=== PATIENT | male | born 1955 | race Caucasian/White ===

== ENCOUNTER 2017-10-02 12:05 | Inpatient (IN) | payer BC ==
[2017-10-02] MEDS ORDERED: Acetaminophen 325 MG Tab PO PRN (13:15)
[2017-10-02] MEDS ORDERED: Iopamidol 612 MG/ML 100 ML Bottle IVPUSH ONE (13:34)
[2017-10-02] MEDS: Enoxaparin 40 MG/0.4 ML Syringe SUBCUT SCH (15:18)
[2017-10-02] MEDS: Clindamycin Phosphate 600 MG in Sodium Chloride 0.9% 100 ML IV SCH ×2 (15:20→20:03)
[2017-10-02] MEDS: Vancomycin 2 GM in Sodium Chloride 0.9% 500 ML IV SCH (16:41)
[2017-10-02] MEDS: Sodium Chloride 0.9% 10 ML Syringe FLUSH PRN ×2 (16:42→20:08)
--- NOTE | 2017-10-02 16:57 | PCM.HP ---
H&P History of Present Illness - General Date of Service: 10/02/17 Admit Problem/Dx: Admission Diagnosis/Problem Admission Diagnosis/Problem Cellulitis Source of Information: Patient, Family - History of Present Illness Initial Comments - Free Text/Narative: 10/02/2017 patient comes into the clinic for evaluation of a left foot ulcer, noticed last night after his stated she saw some drainage to his socks. 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 The took a picture of the foot last night and this morning it looks worse, with an odor and drainage. 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 Patient has been afebrile. Denies nausea or vomiting. Onset of Symptoms: Reports: Sudden Location: Reports: Lower Extremity, Left Improves with: Reports: Immobilization Worsens with: Reports: Movement - Related Data Allergies/Adverse Reactions: Allergies Allergy/AdvReac Type Severity Reaction Status Date / Time No Known Allergies Allergy Verified 10/02/17 14:10 Home Medications: Home Meds Aspirin 81 mg PO DAILY 10/02/17 [History] Furosemide 20 mg PO DAILY 10/02/17 [History] Hydrochlorothiazide 12.5 mg PO DAILY 10/02/17 [History] Lisinopril 5 mg PO BEDTIME 10/02/17 [History] Lisinopril 10 mg PO DAILY 10/02/17 [History] Metoprolol Succinate 200 mg PO DAILY 10/02/17 [History] Multivits,Ca,Min/Iron/FA/Lycop [Centrum Men's Tablet] 1 tab PO DAILY 10/02/17 [ History] Naproxen Sodium [Aleve] 2 tab PO BEDTIME PRN 10/02/17 [History] diphenhydrAMINE HCl [Benadryl] 1 cap PO BEDTIME 10/02/17 [History] Past Medical History HEENT History: Reports: Impaired Vision Other HEENT History: Wears glasses Cardiovascular History: Reports: High Cholesterol, Hypertension Endocrine/Metabolic History: Reports: Obesity/BMI 30+ Dermatologic History: Reports: Cellulitis Other Dermatologic History: hx. of pressure ulcer left foot (ball of foot by great toe) - Past Surgical History Other Musculoskeletal Surgeries/Procedures:: Hx. of back surgery Social & Family History - Family History Cardiac: Reports: High Cholesterol (noted in both parents), Hypertension - Tobacco Use Smoking Status *Q: Never Smoker - Recreational Drug Use Recreational Drug Use: No - Living Situation & Occupation Living situation: Reports: Occupation: Employed H&P Review of Systems - Review of Systems: Review Of Systems: See Below General: Reports: No Symptoms HEENT: Reports: No Symptoms Pulmonary: Reports: No Symptoms Cardiovascular: Reports: No Symptoms Gastrointestinal: Reports: No Symptoms Genitourinary: Reports: No Symptoms Musculoskeletal: Reports: No Symptoms Skin: Reports: Wound (left foot ulceration noted with odor) Psychiatric: Reports: No Symptoms Neurological: Reports: Numbness (numbness to LE bilat) Hematologic/Lymphatic: Reports: No Symptoms Immunologic: Reports: No Symptoms Exam - Exam Exam: See Below - Vital Signs Vital Signs: Last Vital Signs Temp 97.2 F 10/02/17 16:04 Pulse 64 10/02/17 16:04 Resp 18 10/02/17 13:15 BP 156/96 H 10/02/17 16:04 Pulse Ox 99 10/02/17 16:04 Weight: 351 lb 10.197 oz - Exam Quality Assessment: DVT Prophylaxis, Skin Breakdown General: Alert, Oriented, Cooperative HEENT: Conjunctiva Clear, EACs Clear, EOMI, Hearing Intact, Mucosa Moist & [place] , Posterior Pharynx Clear, Pupils Equal Neck: Supple, Trachea Midline Lungs: Clear to Auscultation, Normal Respiratory Effort Cardiovascular: Regular Rate, Regular Rhythm GI/Abdominal Exam: Normal Bowel Sounds, Soft, Non-Tender, No Organomegaly, No Distention, No Abnormal Bruit Back Exam: Normal Inspection, Full Range of Motion Extremities: Other (left foot ulceration noted with ecchymotic area with odor, ) Peripheral Pulses: 1+: Dorsalis Pedis (L), Dorsalis Pedis (R) Skin: Decubitis (left foot) Neurological: Cranial Nerves Intact, Reflexes Equal Bilateral Neuro Extensive - Mental Status: Alert, Oriented x3, Normal Mood/Affect, Normal Cognition, Memory Intact Neuro Extensive - Motor, Sensory, Reflexes: CN II-XII Intact, Normal Gait, Normal Reflexes Psychiatric: Alert, Normal Affect, Normal Mood - Problem List (1) Ulcer of foot SNOMED Code(s): 47708097 ICD Code: L97.509 - NON-PRESSURE CHRONIC ULCER OTH PRT UNSP FOOT W UNSP SEVERITY Status: Acute Current Visit: Yes Qualifiers: Non-pressure ulcer stage: unspecified non-pressure ulcer stage (2) Cellulitis and abscess of foot SNOMED Code(s): 874113304, 449307443 ICD Code: L03.119 - CELLULITIS OF UNSPECIFIED PART OF LIMB; L02.619 - CUTANEOUS ABSCESS OF UNSPECIFIED FOOT Status: Acute Current Visit: Yes (3) Hypertension SNOMED Code(s): 06838666 ICD Code: I10 - ESSENTIAL (PRIMARY) HYPERTENSION Status: Acute Current Visit: Yes Qualifiers: Hypertension type: essential hypertension Qualified Code(s): I10 - Essential (primary) hypertension Problem List Initiated/Reviewed/Updated: Yes Orders Last 24hrs: Active Orders 24 hr Category Date Time Status Patient Status [ADT] Routine ADT 10/02/17 13:15 Active May Shower [RC] ASDIRECTED Care 10/02/17 13:15 Active Oxygen Therapy [RC] PRN Care 10/02/17 13:15 Active Up to Chair [RC] ASDIRECTED Care 10/02/17 13:15 Active VTE/DVT Education [RC] PER UNIT ROUTINE Care 10/02/17 13:15 Active Vital Signs [RC] Q4H Care 10/02/17 13:15 Active Consult to Case Management [CONS] Routine Cons 10/02/17 13:15 Active Consult to Pharmacy [CONS] Routine Cons 10/02/17 13:29 Active Regular Diet [DIET] Diet 10/02/17 Dinner Active Bone Scan Limited [NM] Routine Exams 10/05/17 08:00 Ordered Foot 2V Lt [CR] Routine Exams 10/02/17 13:21 Taken Foot w Cont Lt [CT] Routine Exams 10/02/17 13:21 Taken C-REACTIVE PROTEIN [CHEM] DAILY Lab 10/03/17 05:11 Ordered C-REACTIVE PROTEIN [CHEM] DAILY Lab 10/04/17 05:11 Ordered C-REACTIVE PROTEIN [CHEM] DAILY Lab 10/05/17 05:11 Ordered C-REACTIVE PROTEIN [CHEM] DAILY Lab 10/06/17 05:11 Ordered CBC WITH AUTO DIFF [HEME] DAILY Lab 10/03/17 05:11 Ordered CBC WITH AUTO DIFF [HEME] DAILY Lab 10/04/17 05:11 Ordered CBC WITH AUTO DIFF [HEME] DAILY Lab 10/05/17 05:11 Ordered CBC WITH AUTO DIFF [HEME] DAILY Lab 10/06/17 05:11 Ordered COMPREHENSIVE METABOLIC PN,CMP [CHEM] DAILY Lab 10/03/17 05:11 Ordered COMPREHENSIVE METABOLIC PN,CMP [CHEM] DAILY Lab 10/04/17 05:11 Ordered COMPREHENSIVE METABOLIC PN,CMP [CHEM] DAILY Lab 10/05/17 05:11 Ordered COMPREHENSIVE METABOLIC PN,CMP [CHEM] DAILY Lab 10/06/17 05:11 Ordered CULTURE BLOOD [BC] Stat Lab 10/02/17 13:35 Received CULTURE BLOOD [BC] Stat Lab 10/02/17 13:45 Received Acetaminophen [Tylenol] Med 10/02/17 13:15 Active 650 mg PO Q4H PRN Clindamycin Phosphate [Cleocin] 600 mg Med 10/02/17 14:00 Active Sodium Chloride 0.9% [Normal Saline] 100 ml IV Q6H Enoxaparin [Lovenox] Med 10/02/17 14:00 Active 40 mg SUBCUT Q24H Sodium Chloride 0.9% [Saline Flush] Med 10/02/17 13:15 Active 10 ml FLUSH ASDIRECTED PRN Vancomycin 2 gm Med 10/02/17 16:00 Active Sodium Chloride 0.9% [Normal Saline] 500 ml IV Q12H Blood Culture x2 Reflex Set [OM.PC] Stat Oth 10/02/17 13:15 Ordered Peripheral IV Insertion Adult [OM.PC] Routine Oth 10/02/17 13:15 Ordered Resuscitation Status Routine Resus Stat 10/02/17 13:15 Ordered Medication Orders Acetaminophen (Tylenol) 650 mg PO Q4H PRN PRN Reason: Pain (Mild 1-3)/fever Enoxaparin Sodium (Lovenox) 40 mg SUBCUT Q24H [facility] Last Admin: 10/02/17 15:18 Dose: 40 mg Clindamycin Phosphate 600 mg/ (Sodium Chloride) 104 mls @ 200 mls/hr IV Q6H [facility] Last Admin: 10/02/17 15:20 Dose: 200 mls/hr Vancomycin HCl 2 gm/ Sodium (Chloride) 500 mls @ 165 mls/hr IV Q12H [facility] Last Admin: 10/02/17 16:41 Dose: 165 mls/hr Sodium Chloride (Saline Flush) 10 ml FLUSH ASDIRECTED PRN PRN Reason: Keep Vein Open Last Admin: 10/02/17 16:42 Dose: 10 ml Assessment/Plan Comment:: Patient is admitted to inpatient services due to the severity of the ulceration with visible tunneling noted on the plantar aspect of the foot, culture obtained. Area of redness outlined, will order xray and CT scan of the foot. Surgical consult ordered for possible debridement after the patient has been on IV antibiotics. Started Vanco and Clindamycin IV. Pharmacy consulted. The foot ulceration is too advanced to manage as outpatient at this point. Patient refuses transfer to [place] at this time. Dr Lang consulted. Niyah Loving,[employer]
[2017-10-02] MEDS: Lisinopril 5 MG Tab PO SCH (20:03)
[2017-10-03] MEDS: Clindamycin Phosphate 600 MG in Sodium Chloride 0.9% 100 ML IV SCH ×4 (02:35→22:50)
[2017-10-03] MEDS: Sodium Chloride 0.9% 10 ML Syringe FLUSH PRN ×6 (02:35→23:30)
[2017-10-03] MEDS: Vancomycin 2 GM in Sodium Chloride 0.9% 500 ML IV SCH ×2 (03:06→19:26)
[2017-10-03] MEDS: Lisinopril 10 MG Tab PO SCH (07:27)
[2017-10-03] MEDS: Multivitamin Tab PO SCH (07:27)
[2017-10-03] MEDS: Aspirin 81 MG Tab.Chew PO SCH (07:27)
[2017-10-03] MEDS: Hydrochlorothiazide 25 MG Tab PO SCH (07:27)
[2017-10-03] MEDS: Furosemide 20 MG Tab PO SCH (07:28)
[2017-10-03] MEDS ORDERED: Metoprolol Succinate 50 MG Tab.ER PO SCH (08:00)
[2017-10-03 09:40] LABS: CHLORIDE,CL 104 mmol/L (98-107); SODIUM,NA 140 mmol/L (136-145)
[2017-10-03] MEDS: Enoxaparin 40 MG/0.4 ML Syringe SUBCUT SCH (16:34)
--- NOTE | 2017-10-03 19:14 | PCM.PN ---
- General Info Date of Service: 10/03/17 Admission Dx/Problem (Free Text): Admission Diagnosis/Problem Admission Diagnosis/Problem Cellulitis Functional Status: Reports: Pain Controlled - Review of Systems General: Reports: No Symptoms HEENT: Reports: No Symptoms Pulmonary: Reports: No Symptoms Cardiovascular: Reports: No Symptoms Gastrointestinal: Reports: No Symptoms Genitourinary: Reports: No Symptoms Musculoskeletal: Reports: No Symptoms Skin: Reports: Other (ulcer left foot) Neurological: Reports: No Symptoms Psychiatric: Reports: No Symptoms - Patient Data Vitals - Most Recent: Last Vital Signs Temp 98.7 F 10/03/17 16:00 Pulse 69 10/03/17 16:00 Resp 18 10/03/17 16:00 BP 119/76 10/03/17 16:00 Pulse Ox 95 10/03/17 16:00 Weight - Most Recent: 351 lb 10.197 oz I&O - Last 24 Hours: Intake & Output 10/03/17 10/03/17 10/03/17 06:59 14:59 22:59 Intake Total 1160 360 Balance 1160 360 Lab Results Last 24 Hours: Laboratory Results - last 24 hr 10/03/17 10/03/17 Range/Units 09:10 09:10 WBC 7.8 (4.0-10.2) K/uL RBC 5.16 (4.33-5.41) M/uL Hgb 15.9 (13.1-16.8) g/dL Hct 46.5 (39.0-49.0) % MCV 90.1 D (84.0-98.0) fL MCH 30.8 (28.2-33.3) pg MCHC 34.2 (31.7-36.0) g/dL RDW 13.6 (11.2-14.1) % Plt Count 184 (150-350) K/uL Neut % (Auto) 77.1 (45.0-80.0) % Lymph % (Auto) 15.8 (10.0-50.0) % [place] % (Auto) 5.3 (2.0-14.0) % Eos % (Auto) 1.5 (0.0-5.0) % Baso % (Auto) 0.3 (0.0-2.0) % Neut # (Auto) 6.00 (1.40-7.00) K/uL Lymph # (Auto) 1.23 (0.50-3.50) K/uL [place] # (Auto) 0.41 (0.00-1.00) K/uL Eos # (Auto) 0.12 (0.00-0.50) K/uL Baso # (Auto) 0.02 (0.00-0.20) K/uL Sodium 140 (136-145) mmol/L Potassium 3.8 (3.5-5.1) mmol/L Chloride 104 (98-107) mmol/L Carbon Dioxide 26.5 (21.0-32.0) mmol/L BUN 13 (7-18) mg/dL Creatinine 0.96 (0.51-1.17) mg/dL Est Cr Clr Drug Dosing 106.98 mL/min Estimated GFR (MDRD) > 60 mL/min Glucose 107 H (74-106) mg/dL Calcium 8.7 (8.5-10.1) mg/dL Total Bilirubin 0.8 (0.2-1.0) mg/dL AST 15 (15-37) U/L ALT 27 (12-78) U/L Alkaline Phosphatase 80 (46-116) IU/L C-Reactive Protein 1.3 H (<=0.9) mg/dL Total Protein 7.1 (6.4-8.2) g/dL Albumin 3.2 L (3.4-5.0) g/dL Luis M Results Last 24 Hours: Microbiology 10/02/17 13:45 Aerobic Blood Culture - Preliminary Blood - Venous - Lab Draw NO GROWTH AFTER 1 DAY Anaerobic Blood Culture - Preliminary NO GROWTH AFTER 1 DAY 10/02/17 13:35 Aerobic Blood Culture - Preliminary Blood - Venous NO GROWTH AFTER 1 DAY Anaerobic Blood Culture - Preliminary NO GROWTH AFTER 1 DAY Med Orders - Current: Current Medications Acetaminophen (Tylenol) 650 mg PO Q4H PRN PRN Reason: Pain (Mild 1-3)/fever Aspirin (Aspirin) 81 mg PO DAILY [facility] Last Admin: 10/03/17 07:27 Dose: 81 mg Diphenhydramine HCl (Benadryl) 25 mg PO BEDTIME [facility] Enoxaparin Sodium (Lovenox) 40 mg SUBCUT Q24H [facility] Last Admin: 10/03/17 16:34 Dose: 40 mg Furosemide (Lasix) 20 mg PO DAILY [facility] Last Admin: 10/03/17 07:28 Dose: 20 mg Hydrochlorothiazide (Hydrochlorothiazide) 12.5 mg PO DAILY [facility] Last Admin: 10/03/17 07:27 Dose: 12.5 mg Clindamycin Phosphate 600 mg/ (Sodium Chloride) 104 mls @ 200 mls/hr IV Q6H [facility] Last Admin: 10/03/17 16:33 Dose: 200 mls/hr Vancomycin HCl 2 gm/ Sodium (Chloride) 500 mls @ 165 mls/hr IV Q12H [facility] Lisinopril (Prinivil) 5 mg PO BEDTIME [facility] Last Admin: 10/02/17 20:03 Dose: 5 mg Lisinopril (Prinivil) 10 mg PO DAILY [facility] Last Admin: 10/03/17 07:27 Dose: 10 mg Metoprolol Succinate (Toprol Xl) 200 mg PO BEDTIME [facility] Multivitamins/Minerals/Vitamin C (Tab-A-Lars) 1 tab PO DAILY [facility] Last Admin: 10/03/17 07:27 Dose: 1 tab Sodium Chloride (Saline Flush) 10 ml FLUSH ASDIRECTED PRN PRN Reason: Keep Vein Open Last Admin: 10/03/17 07:23 Dose: 10 ml Discontinued Medications Clindamycin Phosphate 600 mg/ (Sodium Chloride) 104 mls @ 200 mls/hr IV Q6H [facility] Last Admin: 10/03/17 07:23 Dose: 200 mls/hr Vancomycin HCl 1 gm/ Sodium (Chloride) 250 mls @ 165 mls/hr IV Q12H [facility] Last Admin: 10/02/17 17:27 Dose: Not Given Vancomycin HCl 2 gm/ Sodium (Chloride) 500 mls @ 165 mls/hr IV Q12H [facility] Last Admin: 10/03/17 03:06 Dose: 165 mls/hr Iopamidol (Isovue-300 (61%)) 100 ml IVPUSH ONETIME ONE Stop: 10/02/17 13:35 Metoprolol Succinate (Toprol Xl) 200 mg PO DAILY [facility] Last Admin: 10/03/17 07:28 Dose: Not Given - Exam Quality Assessment: Central Line/PICC General: Alert, Cooperative, No Acute Distress HEENT: Mucous Membr. Moist/[place] Neck: Trachea Midline, No JVD Lungs: Clear to Auscultation, Normal Respiratory Effort Cardiovascular: Regular Rate, Regular Rhythm GI/Abdominal Exam: Soft, Non-Tender, No Distention (Male) Exam: Deferred Back Exam: Normal Inspection Extremities: Pedal Edema Skin: Warm, Dry, Intact Wound/Incisions: Drainage, Erythema Improving Neurological: No New Focal Deficit Psy/Mental Status: Alert, Normal Affect, Normal Mood - Problem List & Annotations (1) Neuropathy SNOMED Code(s): 030972929 Code(s): G62.9 - POLYNEUROPATHY, UNSPECIFIED Status: Acute Current Visit : Yes (2) Cellulitis and abscess of foot SNOMED Code(s): 000815260, 032212200 Code(s): L03.119 - CELLULITIS OF UNSPECIFIED PART OF LIMB; L02.619 - CUTANEOUS ABSCESS OF UNSPECIFIED FOOT Status: Acute Priority: High Current Visit: Yes (3) Hypertension SNOMED Code(s): 39288739 Code(s): I10 - ESSENTIAL (PRIMARY) HYPERTENSION Status: Acute Current Visit: Yes Qualifiers: Hypertension type: essential hypertension Qualified Code(s): I10 - Essential (primary) hypertension (4) Ulcer of foot SNOMED Code(s): 96420814 Code(s): L97.509 - NON-PRESSURE CHRONIC ULCER OTH PRT UNSP FOOT W UNSP SEVERITY Status: Acute Current Visit: Yes Qualifiers: Non-pressure ulcer stage: unspecified non-pressure ulcer stage - Problem List Review Problem List Initiated/Reviewed/Updated: Yes - My Orders Last 24 Hours: My Active Orders 10/03/17 09:10 PICC Line [Central Line Insert Checklist] [RC] ASDIRECTED Consult to PICC Team [CONS] Routine OR PCXR-No Charge-PICC/Central [CR] Routine PICC Line Placement NC [CR] Routine Central Venous Line Insertion [OM.PC] Routine 10/03/17 20:00 diphenhydrAMINE [Benadryl] 25 mg PO BEDTIME - Plan Plan:: Patient is admitted to inpatient services due to the severity of the ulceration with visible tunneling noted on the plantar aspect of the foot, culture obtained. Area of redness outlined, will order xray and CT scan of the foot. Surgical consult ordered for possible debridement after the patient has been on IV antibiotics. Started Vanco and Clindamycin IV. Pharmacy consulted. The foot ulceration is too advanced to manage as outpatient at this point. Patient refuses transfer to [place] at this time. Dr Lang consulted. Niyah Loving,KURT 10/03/17 Rickey Porter MD Redness improving. Eshcar persists. Cultures pending. PICC inserted today. Awaiting surgical consultation.
[2017-10-03] MEDS: Lisinopril 5 MG Tab PO SCH (19:33)
[2017-10-03] MEDS: diphenhydrAMINE 25 MG Cap PO SCH (19:33)
[2017-10-03] MEDS: Metoprolol Succinate 50 MG Tab.ER PO SCH (19:37)
[2017-10-04] MEDS: Clindamycin Phosphate 600 MG in Sodium Chloride 0.9% 100 ML IV SCH ×4 (02:59→19:34)
[2017-10-04] MEDS: Sodium Chloride 0.9% 10 ML Syringe FLUSH PRN ×8 (03:00→20:23)
[2017-10-04] MEDS: Lisinopril 10 MG Tab PO SCH (07:29)
[2017-10-04] MEDS: Furosemide 20 MG Tab PO SCH (07:29)
[2017-10-04] MEDS: Multivitamin Tab PO SCH (07:29)
[2017-10-04] MEDS: Hydrochlorothiazide 25 MG Tab PO SCH (07:29)
[2017-10-04] MEDS: Aspirin 81 MG Tab.Chew PO SCH (07:29)
[2017-10-04 07:41] LABS: CHLORIDE,CL 105 mmol/L (98-107); SODIUM,NA 140 mmol/L (136-145)
[2017-10-04] MEDS: Vancomycin 2 GM in Sodium Chloride 0.9% 500 ML IV SCH ×2 (08:58→20:11)
[2017-10-04] MEDS: Enoxaparin 40 MG/0.4 ML Syringe SUBCUT SCH (13:38)
--- NOTE | 2017-10-04 17:52 | PCM.PN ---
- General Info Date of Service: 10/04/17 Admission Dx/Problem (Free Text): Admission Diagnosis/Problem Admission Diagnosis/Problem Cellulitis Functional Status: Reports: Pain Controlled - Review of Systems General: Reports: No Symptoms HEENT: Reports: No Symptoms Pulmonary: Reports: No Symptoms Cardiovascular: Reports: No Symptoms Gastrointestinal: Reports: No Symptoms Genitourinary: Reports: No Symptoms Musculoskeletal: Reports: No Symptoms Skin: Reports: Other (ulcer left foot less drainage, less redness of the foot) Neurological: Reports: No Symptoms, Other (peripheral neuropathy) Psychiatric: Reports: No Symptoms - Patient Data Vitals - Most Recent: Last Vital Signs Temp 97.3 F 10/04/17 11:05 Pulse 63 10/04/17 11:05 Resp 17 10/04/17 11:05 BP 121/76 10/04/17 11:05 Pulse Ox 98 10/04/17 11:05 Weight - Most Recent: 351 lb 10.197 oz I&O - Last 24 Hours: Intake & Output 10/04/17 10/04/17 10/04/17 06:59 14:59 22:59 Intake Total 500 2524 Balance 500 2524 Lab Results Last 24 Hours: Laboratory Results - last 24 hr 10/04/17 10/04/17 10/04/17 Range/Units 07:10 07:10 07:10 WBC 7.6 (4.0-10.2) K/uL RBC 4.89 (4.33-5.41) M/uL Hgb 14.9 (13.1-16.8) g/dL Hct 44.0 (39.0-49.0) % MCV 90.0 (84.0-98.0) fL MCH 30.5 (28.2-33.3) pg MCHC 33.9 (31.7-36.0) g/dL RDW 13.4 (11.2-14.1) % Plt Count 176 (150-350) K/uL Neut % (Auto) 67.5 (45.0-80.0) % Lymph % (Auto) 21.2 (10.0-50.0) % [place] % (Auto) 8.4 (2.0-14.0) % Eos % (Auto) 2.5 (0.0-5.0) % Baso % (Auto) 0.4 (0.0-2.0) % Neut # (Auto) 5.15 (1.40-7.00) K/uL Lymph # (Auto) 1.62 (0.50-3.50) K/uL [place] # (Auto) 0.64 (0.00-1.00) K/uL Eos # (Auto) 0.19 (0.00-0.50) K/uL Baso # (Auto) 0.03 (0.00-0.20) K/uL Sodium 140 (136-145) mmol/L Potassium 4.1 (3.5-5.1) mmol/L Chloride 105 (98-107) mmol/L Carbon Dioxide 27.1 (21.0-32.0) mmol/L BUN 12 (7-18) mg/dL Creatinine 0.94 (0.51-1.17) mg/dL Est Cr Clr Drug Dosing 109.26 mL/min Estimated GFR (MDRD) > 60 mL/min Glucose 92 (74-106) mg/dL Calcium 8.5 (8.5-10.1) mg/dL Total Bilirubin 0.6 (0.2-1.0) mg/dL AST 15 (15-37) U/L ALT 26 (12-78) U/L Alkaline Phosphatase 74 (46-116) IU/L C-Reactive Protein 1.3 H (<=0.9) mg/dL Total Protein 6.7 (6.4-8.2) g/dL Albumin 3.0 L (3.4-5.0) g/dL Vancomycin Trough 11.9 (10-20) ug/mL Luis M Results Last 24 Hours: Microbiology 10/02/17 13:45 Aerobic Blood Culture - Preliminary Blood - Venous - Lab Draw NO GROWTH AFTER 2 DAYS Anaerobic Blood Culture - Preliminary NO GROWTH AFTER 2 DAYS 10/02/17 13:35 Aerobic Blood Culture - Preliminary Blood - Venous NO GROWTH AFTER 2 DAYS Anaerobic Blood Culture - Preliminary NO GROWTH AFTER 2 DAYS Med Orders - Current: Current Medications Acetaminophen (Tylenol) 650 mg PO Q4H PRN PRN Reason: Pain (Mild 1-3)/fever Aspirin (Aspirin) 81 mg PO DAILY [facility] Last Admin: 10/04/17 07:29 Dose: 81 mg Diphenhydramine HCl (Benadryl) 25 mg PO BEDTIME [facility] Last Admin: 10/03/17 19:33 Dose: 25 mg Diphtheria/Tetanus/Acell Pertussis (Adacel) 0.5 ml IM .ONCE ONE Stop: 10/04/17 20:01 Enoxaparin Sodium (Lovenox) 40 mg SUBCUT Q24H [facility] Last Admin: 10/04/17 13:38 Dose: 40 mg Furosemide (Lasix) 20 mg PO DAILY [facility] Last Admin: 10/04/17 07:29 Dose: 20 mg Hydrochlorothiazide (Hydrochlorothiazide) 12.5 mg PO DAILY [facility] Last Admin: 10/04/17 07:29 Dose: 12.5 mg Clindamycin Phosphate 600 mg/ (Sodium Chloride) 104 mls @ 200 mls/hr IV Q6H [facility] Last Admin: 10/04/17 13:37 Dose: 200 mls/hr Vancomycin HCl 2 gm/ Sodium (Chloride) 500 mls @ 165 mls/hr IV Q12H [facility] Last Admin: 10/04/17 08:58 Dose: 165 mls/hr Lisinopril (Prinivil) 5 mg PO BEDTIME [facility] Last Admin: 10/03/17 19:33 Dose: 5 mg Lisinopril (Prinivil) 10 mg PO DAILY [facility] Last Admin: 10/04/17 07:29 Dose: 10 mg Metoprolol Succinate (Toprol Xl) 200 mg PO BEDTIME [facility] Last Admin: 10/03/17 19:37 Dose: 200 mg Multivitamins/Minerals/Vitamin C (Tab-A-Lars) 1 tab PO DAILY [facility] Last Admin: 10/04/17 07:29 Dose: 1 tab Sodium Chloride (Saline Flush) 10 ml FLUSH ASDIRECTED PRN PRN Reason: Keep Vein Open Last Admin: 10/04/17 13:38 Dose: 10 ml Discontinued Medications Clindamycin Phosphate 600 mg/ (Sodium Chloride) 104 mls @ 200 mls/hr IV Q6H [facility] Last Admin: 10/03/17 07:23 Dose: 200 mls/hr Vancomycin HCl 1 gm/ Sodium (Chloride) 250 mls @ 165 mls/hr IV Q12H [facility] Last Admin: 10/02/17 17:27 Dose: Not Given Vancomycin HCl 2 gm/ Sodium (Chloride) 500 mls @ 165 mls/hr IV Q12H [facility] Last Admin: 10/03/17 03:06 Dose: 165 mls/hr Iopamidol (Isovue-300 (61%)) 100 ml IVPUSH ONETIME ONE Stop: 10/02/17 13:35 Last Admin: 10/04/17 11:09 Dose: Not Given Metoprolol Succinate (Toprol Xl) 200 mg PO DAILY [facility] Last Admin: 10/03/17 07:28 Dose: Not Given - Exam Quality Assessment: Central Line/PICC General: Alert, Cooperative, No Acute Distress HEENT: Mucous Membr. Moist/[place] Neck: Trachea Midline, No JVD Lungs: Clear to Auscultation, Normal Respiratory Effort Cardiovascular: Regular Rate, Regular Rhythm GI/Abdominal Exam: Soft, Non-Tender, No Distention (Male) Exam: Deferred Back Exam: Normal Inspection Extremities: Pedal Edema (left>right) Skin: Warm, Dry, Intact Wound/Incisions: Drainage, Erythema Improving, Other (eschar center) Neurological: No New Focal Deficit Psy/Mental Status: Alert, Normal Affect, Normal Mood - Problem List & Annotations (1) Neuropathy SNOMED Code(s): 929304963 Code(s): G62.9 - POLYNEUROPATHY, UNSPECIFIED Status: Acute Current Visit : Yes (2) Cellulitis and abscess of foot SNOMED Code(s): 521114821, 100381892 Code(s): L03.119 - CELLULITIS OF UNSPECIFIED PART OF LIMB; L02.619 - CUTANEOUS ABSCESS OF UNSPECIFIED FOOT Status: Acute Priority: High Current Visit: Yes (3) Hypertension SNOMED Code(s): 73099749 Code(s): I10 - ESSENTIAL (PRIMARY) HYPERTENSION Status: Acute Current Visit: Yes Qualifiers: Hypertension type: essential hypertension Qualified Code(s): I10 - Essential (primary) hypertension (4) Ulcer of foot SNOMED Code(s): 28362994 Code(s): L97.509 - NON-PRESSURE CHRONIC ULCER OTH PRT UNSP FOOT W UNSP SEVERITY Status: Acute Current Visit: Yes Qualifiers: Non-pressure ulcer stage: unspecified non-pressure ulcer stage - Problem List Review Problem List Initiated/Reviewed/Updated: Yes - My Orders Last 24 Hours: My Active Orders 10/03/17 20:00 diphenhydrAMINE [Benadryl] 25 mg PO BEDTIME - Plan Plan:: Patient is admitted to inpatient services due to the severity of the ulceration with visible tunneling noted on the plantar aspect of the foot, culture obtained. Area of redness outlined, will order xray and CT scan of the foot. Surgical consult ordered for possible debridement after the patient has been on IV antibiotics. Started Vanco and Clindamycin IV. Pharmacy consulted. The foot ulceration is too advanced to manage as outpatient at this point. Patient refuses transfer to [place] at this time. Dr Lang consulted. Niyah Loving,[facility] [place] 10/03/17 Rickey Porter MD Redness improving. Eshcar persists. Cultures pending. PICC inserted today. Awaiting surgical consultation. 10/04/17 Rickey Porter MD Preliminary C&S wound noted. Continue antibiotics. Surgical consultation tomorrow.
[2017-10-04] MEDS ORDERED: Diphtheria,Pertussis(Acell),Tetanus Vaccine 0.5 ML SDV IM ONE (20:00)
[2017-10-04] MEDS: Metoprolol Succinate 50 MG Tab.ER PO SCH (20:21)
[2017-10-04] MEDS: Lisinopril 5 MG Tab PO SCH (20:21)
[2017-10-04] MEDS: diphenhydrAMINE 25 MG Cap PO SCH (20:22)
[2017-10-05] MEDS: Clindamycin Phosphate 600 MG in Sodium Chloride 0.9% 100 ML IV SCH ×2 (02:11→07:31)
[2017-10-05] MEDS: Sodium Chloride 0.9% 10 ML Syringe FLUSH PRN ×6 (02:11→20:40)
[2017-10-05] MEDS: Lisinopril 10 MG Tab PO SCH (07:31)
[2017-10-05] MEDS: Furosemide 20 MG Tab PO SCH (07:31)
[2017-10-05] MEDS: Aspirin 81 MG Tab.Chew PO SCH (07:31)
[2017-10-05] MEDS: Multivitamin Tab PO SCH (07:31)
[2017-10-05] MEDS: Hydrochlorothiazide 25 MG Tab PO SCH (07:32)
[2017-10-05 07:50] LABS: CHLORIDE,CL 105 mmol/L (98-107); SODIUM,NA 140 mmol/L (136-145)
[2017-10-05] MEDS: Vancomycin 2 GM in Sodium Chloride 0.9% 500 ML IV SCH ×2 (08:33→20:38)
[2017-10-05] MEDS ORDERED: Levofloxacin/Dextrose 5%-Water 500 MG in Premix Bag 1 BAG IV SCH (11:00)
[2017-10-05] MEDS ORDERED: Ciprofloxacin in D5W 400 MG in Premix Bag 1 BAG IV SCH ×2 (12:00)
[2017-10-05] MEDS: cefTAZidime 1 GM Vial IVPUSH SCH ×2 (12:07→20:40)
--- NOTE | 2017-10-05 18:02 | PCM.PN ---
- General Info Date of Service: 10/05/17 Admission Dx/Problem (Free Text): Admission Diagnosis/Problem Admission Diagnosis/Problem Cellulitis Functional Status: Reports: Pain Controlled - Review of Systems General: Reports: No Symptoms HEENT: Reports: No Symptoms Pulmonary: Reports: No Symptoms Cardiovascular: Reports: No Symptoms Gastrointestinal: Reports: No Symptoms Genitourinary: Reports: No Symptoms Musculoskeletal: Reports: No Symptoms Skin: Reports: No Symptoms, Other (ulcer debrided per Dr. Thomas today) Neurological: Reports: No Symptoms Psychiatric: Reports: No Symptoms - Patient Data Vitals - Most Recent: Last Vital Signs Temp 97.3 F 10/05/17 16:00 Pulse 63 10/05/17 16:00 Resp 18 10/05/17 16:00 BP 119/85 10/05/17 16:00 Pulse Ox 97 10/05/17 16:00 Weight - Most Recent: 351 lb 10.197 oz I&O - Last 24 Hours: Intake & Output 10/05/17 10/05/17 10/05/17 06:59 14:59 22:59 Intake Total 400 1300 240 Balance 400 1300 240 Lab Results Last 24 Hours: Laboratory Results - last 24 hr 10/05/17 10/05/17 Range/Units 07:20 07:20 WBC 7.8 (4.0-10.2) K/uL RBC 5.00 (4.33-5.41) M/uL Hgb 15.4 (13.1-16.8) g/dL Hct 44.8 (39.0-49.0) % MCV 89.6 (84.0-98.0) fL MCH 30.8 (28.2-33.3) pg MCHC 34.4 (31.7-36.0) g/dL RDW 13.5 (11.2-14.1) % Plt Count 168 (150-350) K/uL Neut % (Auto) 65.8 (45.0-80.0) % Lymph % (Auto) 23.2 (10.0-50.0) % [place] % (Auto) 7.9 (2.0-14.0) % Eos % (Auto) 2.7 (0.0-5.0) % Baso % (Auto) 0.4 (0.0-2.0) % Neut # (Auto) 5.14 (1.40-7.00) K/uL Lymph # (Auto) 1.81 (0.50-3.50) K/uL [place] # (Auto) 0.62 (0.00-1.00) K/uL Eos # (Auto) 0.21 (0.00-0.50) K/uL Baso # (Auto) 0.03 (0.00-0.20) K/uL Sodium 140 (136-145) mmol/L Potassium 4.1 (3.5-5.1) mmol/L Chloride 105 (98-107) mmol/L Carbon Dioxide 27.3 (21.0-32.0) mmol/L BUN 13 (7-18) mg/dL Creatinine 0.97 (0.51-1.17) mg/dL Est Cr Clr Drug Dosing 105.88 mL/min Estimated GFR (MDRD) > 60 mL/min Glucose 90 (74-106) mg/dL Calcium 8.5 (8.5-10.1) mg/dL Total Bilirubin 0.6 (0.2-1.0) mg/dL AST 33 (15-37) U/L ALT 46 (12-78) U/L Alkaline Phosphatase 73 (46-116) IU/L C-Reactive Protein 1.2 H (<=0.9) mg/dL Total Protein 6.9 (6.4-8.2) g/dL Albumin 3.1 L (3.4-5.0) g/dL Luis M Results Last 24 Hours: Microbiology 10/02/17 13:45 Aerobic Blood Culture - Preliminary Blood - Venous - Lab Draw NO GROWTH AFTER 3 DAYS Anaerobic Blood Culture - Preliminary NO GROWTH AFTER 3 DAYS 10/02/17 13:35 Aerobic Blood Culture - Preliminary Blood - Venous NO GROWTH AFTER 3 DAYS Anaerobic Blood Culture - Preliminary NO GROWTH AFTER 3 DAYS Med Orders - Current: Current Medications Acetaminophen (Tylenol) 650 mg PO Q4H PRN PRN Reason: Pain (Mild 1-3)/fever Aspirin (Aspirin) 81 mg PO DAILY [facility] Last Admin: 10/05/17 07:31 Dose: 81 mg Ceftazidime (Fortaz) 1 gm IVPUSH Q8H [facility] Stop: 10/05/17 20:01 Last Admin: 10/05/17 12:07 Dose: 1 gm Diphenhydramine HCl (Benadryl) 25 mg PO BEDTIME [facility] Last Admin: 10/04/17 20:22 Dose: 25 mg Furosemide (Lasix) 20 mg PO DAILY [facility] Last Admin: 10/05/17 07:31 Dose: 20 mg Hydrochlorothiazide (Hydrochlorothiazide) 12.5 mg PO DAILY [facility] Last Admin: 10/05/17 07:32 Dose: 12.5 mg Vancomycin HCl 2 gm/ Sodium (Chloride) 500 mls @ 165 mls/hr IV Q12H [facility] Stop: 10/05/17 23:02 Last Admin: 10/05/17 08:33 Dose: 165 mls/hr Ceftriaxone Sodium 2 gm/ (Sodium Chloride) 100 mls @ 200 mls/hr IV Q24H [facility] Levofloxacin/Dextrose 500 mg/ (Premix) 100 mls @ 100 mls/hr IV Q24H [facility] Lisinopril (Prinivil) 5 mg PO BEDTIME [facility] Last Admin: 10/04/17 20:21 Dose: 5 mg Lisinopril (Prinivil) 10 mg PO DAILY [facility] Last Admin: 10/05/17 07:31 Dose: 10 mg Metoprolol Succinate (Toprol Xl) 200 mg PO BEDTIME [facility] Last Admin: 10/04/17 20:21 Dose: 200 mg Multivitamins/Minerals/Vitamin C (Tab-A-Lars) 1 tab PO DAILY [facility] Last Admin: 10/05/17 07:31 Dose: 1 tab Sodium Chloride (Saline Flush) 10 ml FLUSH ASDIRECTED PRN PRN Reason: Keep Vein Open Last Admin: 10/05/17 12:07 Dose: 10 ml Discontinued Medications Diphtheria/Tetanus/Acell Pertussis (Adacel) 0.5 ml IM .ONCE ONE Stop: 10/04/17 20:01 Last Admin: 10/04/17 20:12 Dose: 0.5 ml Enoxaparin Sodium (Lovenox) 40 mg SUBCUT Q24H [facility] Last Admin: 10/04/17 13:38 Dose: 40 mg Clindamycin Phosphate 600 mg/ (Sodium Chloride) 104 mls @ 200 mls/hr IV Q6H [facility] Last Admin: 10/03/17 07:23 Dose: 200 mls/hr Vancomycin HCl 1 gm/ Sodium (Chloride) 250 mls @ 165 mls/hr IV Q12H [facility] Last Admin: 10/02/17 17:27 Dose: Not Given Vancomycin HCl 2 gm/ Sodium (Chloride) 500 mls @ 165 mls/hr IV Q12H [facility] Last Admin: 10/03/17 03:06 Dose: 165 mls/hr Clindamycin Phosphate 600 mg/ (Sodium Chloride) 104 mls @ 200 mls/hr IV Q6H [facility] Last Admin: 10/05/17 07:31 Dose: 200 mls/hr Ciprofloxacin/Dextrose 400 mg/ (Premix) 200 mls @ 200 mls/hr IV Q12HR [facility] Levofloxacin/Dextrose 500 mg/ (Premix) 100 mls @ 100 mls/hr IV Q24H [facility] Last Admin: 10/05/17 12:07 Dose: 100 mls/hr Iopamidol (Isovue-300 (61%)) 100 ml IVPUSH ONETIME ONE Stop: 10/02/17 13:35 Last Admin: 10/04/17 11:09 Dose: Not Given Metoprolol Succinate (Toprol Xl) 200 mg PO DAILY [facility] Last Admin: 10/03/17 07:28 Dose: Not Given - Exam Quality Assessment: Central Line/PICC General: Alert, Cooperative, No Acute Distress HEENT: Mucous Membr. Moist/[place] Neck: Trachea Midline, No JVD Lungs: Clear to Auscultation, Normal Respiratory Effort Cardiovascular: Regular Rate, Regular Rhythm GI/Abdominal Exam: Soft, Non-Tender, No Distention (Male) Exam: Deferred Back Exam: Normal Inspection Extremities: Pedal Edema Skin: Warm, Dry, Intact Wound/Incisions: Drainage, Erythema Improving, Decubitis (debrided today per Dr. Thomas) Neurological: No New Focal Deficit Psy/Mental Status: Alert, Normal Affect, Normal Mood - Problem List & Annotations (1) Neuropathy SNOMED Code(s): 831197790 Code(s): G62.9 - POLYNEUROPATHY, UNSPECIFIED Status: Acute Current Visit : Yes (2) Cellulitis and abscess of foot SNOMED Code(s): 533133884, 090193310 Code(s): L03.119 - CELLULITIS OF UNSPECIFIED PART OF LIMB; L02.619 - CUTANEOUS ABSCESS OF UNSPECIFIED FOOT Status: Acute Priority: High Current Visit: Yes (3) Hypertension SNOMED Code(s): 25745046 Code(s): I10 - ESSENTIAL (PRIMARY) HYPERTENSION Status: Acute Current Visit: Yes Qualifiers: Hypertension type: essential hypertension Qualified Code(s): I10 - Essential (primary) hypertension (4) Ulcer of foot SNOMED Code(s): 30027421 Code(s): L97.509 - NON-PRESSURE CHRONIC ULCER OTH PRT UNSP FOOT W UNSP SEVERITY Status: Acute Current Visit: Yes Qualifiers: Non-pressure ulcer stage: unspecified non-pressure ulcer stage - Problem List Review Problem List Initiated/Reviewed/Updated: Yes - My Orders Last 24 Hours: My Active Orders 10/05/17 12:00 cefTAZidime [Fortaz] 1 gm IVPUSH Q8H 10/06/17 08:00 cefTRIAXone [Rocephin] 2 gm Sodium Chloride 0.9% [Normal Saline] 100 ml IV Q24H 10/06/17 09:00 Levofloxacin/Dextrose 5%-Water [Levaquin in D5W 500 MG/100 ML] 500 mg Premix Bag 1 bag IV Q24H - Plan Plan:: Patient is admitted to inpatient services due to the severity of the ulceration with visible tunneling noted on the plantar aspect of the foot, culture obtained. Area of redness outlined, will order xray and CT scan of the foot. Surgical consult ordered for possible debridement after the patient has been on IV antibiotics. Started Vanco and Clindamycin IV. Pharmacy consulted. The foot ulceration is too advanced to manage as outpatient at this point. Patient refuses transfer to [place] at this time. Dr Lang consulted. Niyah Loving,[employer] 10/03/17 Rickey Porter MD Redness improving. Eshcar persists. Cultures pending. PICC inserted today. Awaiting surgical consultation. 10/04/17 Rickey Porter MD Preliminary C&S wound noted. Continue antibiotics. Surgical consultation tomorrow. 10/05/17 Rickey Porter MD Antibiotics adjusted after reviewing C&S. Dr. Thomas debrided ulcer. Continue IV antibiotics and dressing changes. Discharge plans discussed. Probably out- patient IV antibiotics, IV rocephin and IV levaquin will cover the multiple organisms.
[2017-10-05] MEDS: Metoprolol Succinate 50 MG Tab.ER PO SCH (20:38)
[2017-10-05] MEDS: diphenhydrAMINE 25 MG Cap PO SCH (20:39)
[2017-10-05] MEDS: Lisinopril 5 MG Tab PO SCH (20:39)
[2017-10-06 07:47] LABS: CHLORIDE,CL 104 mmol/L (98-107); SODIUM,NA 139 mmol/L (136-145)
[2017-10-06] MEDS ORDERED: cefTRIAXone 2 GM in Sodium Chloride 0.9% 100 ML IV SCH (08:00)
[2017-10-06] MEDS: Lisinopril 10 MG Tab PO SCH (08:01)
[2017-10-06] MEDS: Hydrochlorothiazide 25 MG Tab PO SCH (08:01)
[2017-10-06] MEDS: Multivitamin Tab PO SCH (08:02)
[2017-10-06] MEDS: Aspirin 81 MG Tab.Chew PO SCH (08:02)
[2017-10-06] MEDS: Furosemide 20 MG Tab PO SCH (08:02)
[2017-10-06] MEDS: Sodium Chloride 0.9% 10 ML Syringe FLUSH PRN ×2 (08:04→08:42)
[2017-10-06] MEDS ORDERED: Levofloxacin/Dextrose 5%-Water 500 MG in Premix Bag 1 BAG IV SCH (09:00)
--- NOTE | 2017-10-06 10:50 | OR ---
Date of Procedure: 10/05/2017 HISTORY OF PRESENT ILLNESS: This is a 61-year-old gentleman who is seen in consultation from Dr. Rickey Porter for evaluation of an infected ulcer on the bottom of his left foot. The patient has decreased sensation due to previous spine problems and presented 3 days ago with cellulitis and an ulcer on the bottom of his left foot. CT scan does not show evidence of osteomyelitis. He has been on IV antibiotics and cellulitis seems to be improving. He has been afebrile. PICC line was placed for IV antibiotics. PHYSICAL EXAMINATION: VITAL SIGNS: He is afebrile. MUSCULOSKELETAL: His left foot does feel warm and appears to have a good circulation. He does have a 1.5 cm ulcer with necrotic tissue present over the lateral aspect of the plantar surface. Just distal to that is some thick callused skin. The necrotic tissue and the ulcer were sharply debrided until some bleeding was visible. This does tracks distally subcutaneously for approximately 1 cm. Most the necrotic tissue was removed. The rest will be managed with dressing changes with dry gauze 3 times a day. Once this granulates, moist dressing should be applied. The callus on his foot was also trimmed. JUAN PABLO SUNG MD /[id number]
--- NOTE | 2017-10-06 12:38 | PCM.PN ---
- General Info Date of Service: 10/06/17 Admission Dx/Problem (Free Text): Admission Diagnosis/Problem Admission Diagnosis/Problem Cellulitis Functional Status: Reports: Pain Controlled, Ambulating - Review of Systems General: Reports: No Symptoms HEENT: Reports: No Symptoms Pulmonary: Reports: No Symptoms Cardiovascular: Reports: No Symptoms Gastrointestinal: Reports: No Symptoms Genitourinary: Reports: No Symptoms Musculoskeletal: Reports: No Symptoms Skin: Reports: No Symptoms, Other (ulcer left foot) Neurological: Reports: No Symptoms Psychiatric: Reports: No Symptoms - Patient Data Vitals - Most Recent: Last Vital Signs Temp 98.9 F 10/06/17 07:35 Pulse 58 L 10/06/17 07:35 Resp 20 10/06/17 07:35 BP 119/82 10/06/17 08:01 Pulse Ox 96 10/06/17 07:35 Weight - Most Recent: 351 lb 10.197 oz I&O - Last 24 Hours: Intake & Output 10/05/17 10/06/17 10/06/17 22:59 06:59 14:59 Intake Total 600 480 Balance 600 480 Lab Results Last 24 Hours: Laboratory Results - last 24 hr 10/06/17 10/06/17 Range/Units 07:10 07:10 WBC 9.1 (4.0-10.2) K/uL RBC 5.29 (4.33-5.41) M/uL Hgb 16.2 (13.1-16.8) g/dL Hct 46.9 (39.0-49.0) % MCV 88.7 (84.0-98.0) fL MCH 30.6 (28.2-33.3) pg MCHC 34.5 (31.7-36.0) g/dL RDW 13.3 (11.2-14.1) % Plt Count 193 (150-350) K/uL Neut % (Auto) 65.9 (45.0-80.0) % Lymph % (Auto) 23.8 (10.0-50.0) % [place] % (Auto) 6.9 (2.0-14.0) % Eos % (Auto) 3.1 (0.0-5.0) % Baso % (Auto) 0.3 (0.0-2.0) % Neut # (Auto) 6.00 (1.40-7.00) K/uL Lymph # (Auto) 2.17 (0.50-3.50) K/uL [place] # (Auto) 0.63 (0.00-1.00) K/uL Eos # (Auto) 0.28 (0.00-0.50) K/uL Baso # (Auto) 0.03 (0.00-0.20) K/uL Sodium 139 (136-145) mmol/L Potassium 4.0 (3.5-5.1) mmol/L Chloride 104 (98-107) mmol/L Carbon Dioxide 26.4 (21.0-32.0) mmol/L BUN 12 (7-18) mg/dL Creatinine 0.95 (0.51-1.17) mg/dL Est Cr Clr Drug Dosing 108.11 mL/min Estimated GFR (MDRD) > 60 mL/min Glucose 89 (74-106) mg/dL Calcium 8.8 (8.5-10.1) mg/dL Total Bilirubin 0.5 (0.2-1.0) mg/dL AST 51 H (15-37) U/L ALT 76 (12-78) U/L Alkaline Phosphatase 77 (46-116) IU/L C-Reactive Protein 0.5 (<=0.9) mg/dL Total Protein 7.2 (6.4-8.2) g/dL Albumin 3.2 L (3.4-5.0) g/dL Luis M Results Last 24 Hours: Microbiology 10/02/17 13:45 Aerobic Blood Culture - Preliminary Blood - Venous - Lab Draw NO GROWTH AFTER 3 DAYS Anaerobic Blood Culture - Preliminary NO GROWTH AFTER 3 DAYS 10/02/17 13:35 Aerobic Blood Culture - Preliminary Blood - Venous NO GROWTH AFTER 3 DAYS Anaerobic Blood Culture - Preliminary NO GROWTH AFTER 3 DAYS Med Orders - Current: Current Medications Acetaminophen (Tylenol) 650 mg PO Q4H PRN PRN Reason: Pain (Mild 1-3)/fever Aspirin (Aspirin) 81 mg PO DAILY [facility] Last Admin: 10/06/17 08:02 Dose: 81 mg Diphenhydramine HCl (Benadryl) 25 mg PO BEDTIME [facility] Last Admin: 10/05/17 20:39 Dose: 25 mg Furosemide (Lasix) 20 mg PO DAILY [facility] Last Admin: 10/06/17 08:02 Dose: 20 mg Hydrochlorothiazide (Hydrochlorothiazide) 12.5 mg PO DAILY [facility] Last Admin: 10/06/17 08:01 Dose: 12.5 mg Ceftriaxone Sodium 2 gm/ (Sodium Chloride) 100 mls @ 200 mls/hr IV Q24H [facility] Last Admin: 10/06/17 08:02 Dose: 200 mls/hr Levofloxacin/Dextrose 500 mg/ (Premix) 100 mls @ 100 mls/hr IV Q24H [facility] Last Admin: 10/06/17 08:41 Dose: 100 mls/hr Lisinopril (Prinivil) 5 mg PO BEDTIME [facility] Last Admin: 10/05/17 20:39 Dose: 5 mg Lisinopril (Prinivil) 10 mg PO DAILY [facility] Last Admin: 10/06/17 08:01 Dose: 10 mg Metoprolol Succinate (Toprol Xl) 200 mg PO BEDTIME [facility] Last Admin: 10/05/17 20:38 Dose: 200 mg Multivitamins/Minerals/Vitamin C (Tab-A-Lars) 1 tab PO DAILY [facility] Last Admin: 10/06/17 08:02 Dose: 1 tab Sodium Chloride (Saline Flush) 10 ml FLUSH ASDIRECTED PRN PRN Reason: Keep Vein Open Last Admin: 10/06/17 08:42 Dose: 10 ml Discontinued Medications Ceftazidime (Fortaz) 1 gm IVPUSH Q8H [facility] Stop: 10/05/17 20:01 Last Admin: 10/05/17 20:40 Dose: 1 gm Diphtheria/Tetanus/Acell Pertussis (Adacel) 0.5 ml IM .ONCE ONE Stop: 10/04/17 20:01 Last Admin: 10/04/17 20:12 Dose: 0.5 ml Enoxaparin Sodium (Lovenox) 40 mg SUBCUT Q24H [facility] Last Admin: 10/04/17 13:38 Dose: 40 mg Clindamycin Phosphate 600 mg/ (Sodium Chloride) 104 mls @ 200 mls/hr IV Q6H [facility] Last Admin: 10/03/17 07:23 Dose: 200 mls/hr Vancomycin HCl 1 gm/ Sodium (Chloride) 250 mls @ 165 mls/hr IV Q12H [facility] Last Admin: 10/02/17 17:27 Dose: Not Given Vancomycin HCl 2 gm/ Sodium (Chloride) 500 mls @ 165 mls/hr IV Q12H [facility] Last Admin: 10/03/17 03:06 Dose: 165 mls/hr Clindamycin Phosphate 600 mg/ (Sodium Chloride) 104 mls @ 200 mls/hr IV Q6H [facility] Last Admin: 10/05/17 07:31 Dose: 200 mls/hr Vancomycin HCl 2 gm/ Sodium (Chloride) 500 mls @ 165 mls/hr IV Q12H [facility] Stop: 10/05/17 23:02 Last Admin: 10/05/17 20:38 Dose: 165 mls/hr Ciprofloxacin/Dextrose 400 mg/ (Premix) 200 mls @ 200 mls/hr IV Q12HR [facility] Levofloxacin/Dextrose 500 mg/ (Premix) 100 mls @ 100 mls/hr IV Q24H [facility] Last Admin: 10/05/17 12:07 Dose: 100 mls/hr Iopamidol (Isovue-300 (61%)) 100 ml IVPUSH ONETIME ONE Stop: 10/02/17 13:35 Last Admin: 10/04/17 11:09 Dose: Not Given Metoprolol Succinate (Toprol Xl) 200 mg PO DAILY [facility] Last Admin: 10/03/17 07:28 Dose: Not Given - Exam Quality Assessment: Central Line/PICC General: Alert, Cooperative, No Acute Distress HEENT: Mucous Membr. Moist/[place] Neck: Trachea Midline, No JVD Lungs: Clear to Auscultation, Normal Respiratory Effort Cardiovascular: Regular Rate, Regular Rhythm GI/Abdominal Exam: Soft, Non-Tender, No Distention (Male) Exam: Deferred Back Exam: Normal Inspection Extremities: Pedal Edema Skin: Warm, Dry, Intact Wound/Incisions: Healing Well, Drainage (mild), Erythema Improving Neurological: No New Focal Deficit, Other (peripheral neuropathy) Psy/Mental Status: Alert, Normal Affect, Normal Mood - Problem List & Annotations (1) Neuropathy SNOMED Code(s): 946365885 Code(s): G62.9 - POLYNEUROPATHY, UNSPECIFIED Status: Acute Priority: High Current Visit: Yes (2) Cellulitis and abscess of foot SNOMED Code(s): 886889315, 974683338 Code(s): L03.119 - CELLULITIS OF UNSPECIFIED PART OF LIMB; L02.619 - CUTANEOUS ABSCESS OF UNSPECIFIED FOOT Status: Acute Priority: High Current Visit: Yes (3) Hypertension SNOMED Code(s): 71424837 Code(s): I10 - ESSENTIAL (PRIMARY) HYPERTENSION Status: Acute Current Visit: Yes Qualifiers: Hypertension type: essential hypertension Qualified Code(s): I10 - Essential (primary) hypertension (4) Ulcer of foot SNOMED Code(s): 80274851 Code(s): L97.509 - NON-PRESSURE CHRONIC ULCER OTH PRT UNSP FOOT W UNSP SEVERITY Status: Acute Current Visit: Yes Qualifiers: Non-pressure ulcer stage: unspecified non-pressure ulcer stage (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 SNOMED Code(s): 70605519, 970009686 Code(s): L97.503 - NON-PRS CHRONIC ULCER OTH PRT UNSP FOOT W NECROSIS OF MUSCLE Status: Acute Priority: High Current Visit: Yes Qualifiers: Laterality: left Qualified Code(s): L97.523 - Non-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 - Problem List Review Problem List Initiated/Reviewed/Updated: Yes - My Orders Last 24 Hours: My Active Orders 10/06/17 08:00 cefTRIAXone [Rocephin] 2 gm Sodium Chloride 0.9% [Normal Saline] 100 ml IV Q24H 10/06/17 09:00 Levofloxacin/Dextrose 5%-Water [Levaquin in D5W 500 MG/100 ML] 500 mg Premix Bag 1 bag IV Q24H 10/06/17 12:18 Discontinue Saline Lock [Peripheral IV Discontinue] [OM.PC] Routine 10/06/17 12:32 Ready for Discharge [RC] PER UNIT ROUTINE - Plan Plan:: Patient is admitted to inpatient services due to the severity of the ulceration with visible tunneling noted on the plantar aspect of the foot, culture obtained. Area of redness outlined, will order xray and CT scan of the foot. Surgical consult ordered for possible debridement after the patient has been on IV antibiotics. Started Vanco and Clindamycin IV. Pharmacy consulted. The foot ulceration is too advanced to manage as outpatient at this point. Patient refuses transfer to [place] at this time. Dr Lang consulted. Niyah Loving,[facility] 10/03/17 Rickey Porter MD Redness improving. Eshcar persists. Cultures pending. PICC inserted today. Awaiting surgical consultation. 10/04/17 Rickey Porter MD Preliminary C&S wound noted. Continue antibiotics. Surgical consultation tomorrow. 10/05/17 Rickey Porter MD Antibiotics adjusted after reviewing C&S. Dr. Thomas debrided ulcer. Continue IV antibiotics and dressing changes. Discharge plans discussed. Probably out- patient IV antibiotics, IV rocephin and IV levaquin will cover the multiple organisms. 10/06/17 Rickey Porter MD Ulcer markedly improved. Mild drainage. Appears clean. Is deep on medial side. He really wants to go home. Will continue outpatient antibiotics through PICC and monitor closely.
--- NOTE | 2017-10-06 12:44 | PCM.DCSUM1 ---
Discharge Summary - Hospital Course Diagnosis: Stroke: No - Discharge Data Discharge Date: 10/06/17 Discharge Disposition: Home, Self-Care 01 Condition: Good - Discharge Diagnosis/Problem(s) (1) Neuropathy SNOMED Code(s): 335153953 ICD Code: G62.9 - POLYNEUROPATHY, UNSPECIFIED Status: Acute Priority: High Current Visit: Yes (2) Cellulitis and abscess of foot SNOMED Code(s): 441464306, 096266919 ICD Code: L03.119 - CELLULITIS OF UNSPECIFIED PART OF LIMB; L02.619 - CUTANEOUS ABSCESS OF UNSPECIFIED FOOT Status: Acute Priority: High Current Visit: Yes (3) Hypertension SNOMED Code(s): 78631227 ICD Code: I10 - ESSENTIAL (PRIMARY) HYPERTENSION Status: Acute Current Visit: Yes Qualifiers: Hypertension type: essential hypertension Qualified Code(s): I10 - Essential (primary) hypertension (4) Ulcer of foot SNOMED Code(s): 77241296 ICD Code: L97.509 - NON-PRESSURE CHRONIC ULCER OTH PRT UNSP FOOT W UNSP SEVERITY Status: Acute Current Visit: Yes Qualifiers: Non-pressure ulcer stage: unspecified non-pressure ulcer stage (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 SNOMED Code(s): 74920738, 876262100 ICD Code: L97.503 - NON-PRS CHRONIC ULCER OTH PRT UNSP FOOT W NECROSIS OF MUSCLE Status: Acute Priority: High Current Visit: Yes Qualifiers: Laterality: left Qualified Code(s): L97.523 - Non-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 - Patient Summary/Data Consults: Consultations 10/02/17 13:15 Consult to Case Management [CONS] Routine 10/02/17 13:29 Consult to Pharmacy [CONS] Routine 10/03/17 08:29 Pharmacy Consult [Consult to Pharmacy] [CONS] Routine 10/03/17 09:10 Consult to PICC Team [CONS] Routine 10/05/17 07:00 Consult to Physician [CONS] Routine - Patient Instructions Diet: Regular Diet as Tolerated Activity: Non Weight Bearing (on the left foot), No Strenuous Activities Showering/Bathing: May Shower Wound/Incision Care: Change Dressing Daily (at home and nurses will change dressing at the hospital daily) Other/Special Instructions: Come to [facility] in [place] daily at ~0800 for IV antibiotics for about 2 weeks. Nurse will also change dressing on your left foot. You have appointment at [facility] on Monday10/09/17 at 10:[address] Lang to have ulcer checked. Limit weight bearing on the left foot. Wear post op shoe when ambulating. Do foot dressing in the evening and as needed during the day if there is a lot of drainage. - Discharge Plan Home Medications: Home Meds Aspirin 81 mg PO DAILY 10/02/17 [History] Furosemide 20 mg PO DAILY 10/02/17 [History] Hydrochlorothiazide 12.5 mg PO DAILY 10/02/17 [History] Lisinopril 5 mg PO BEDTIME 10/02/17 [History] Lisinopril 10 mg PO DAILY 10/02/17 [History] Metoprolol Succinate 200 mg PO BEDTIME 10/02/17 [History] Multivits,Ca,Min/Iron/FA/Lycop [Centrum Men's Tablet] 1 tab PO DAILY 10/02/17 [ History] Naproxen Sodium [Aleve] 2 tab PO BEDTIME PRN 10/02/17 [History] diphenhydrAMINE HCl [Benadryl] 1 cap PO BEDTIME 10/02/17 [History] Patient Handouts: Clindamycin injection, Cellulitis, Adult, Levofloxacin injection, Ceftazidime injection, Enoxaparin injection, Vancomycin injection Referrals: Rickey-Kristel Porter MD [Physician] - - Discharge Summary/Plan Comment DC Time >30 min.: No - Patient Data Vitals - Most Recent: Last Vital Signs Temp 98.9 F 10/06/17 07:35 Pulse 58 L 10/06/17 07:35 Resp 20 10/06/17 07:35 BP 119/82 10/06/17 08:01 Pulse Ox 96 10/06/17 07:35 Weight - Most Recent: 351 lb 10.197 oz I&O - Last 24 hours: Intake & Output 10/05/17 10/06/17 10/06/17 22:59 06:59 14:59 Intake Total 600 480 Balance 600 480 Lab Results - Last 24 hrs: Laboratory Results - last 24 hr 10/06/17 10/06/17 Range/Units 07:10 07:10 WBC 9.1 (4.0-10.2) K/uL RBC 5.29 (4.33-5.41) M/uL Hgb 16.2 (13.1-16.8) g/dL Hct 46.9 (39.0-49.0) % MCV 88.7 (84.0-98.0) fL MCH 30.6 (28.2-33.3) pg MCHC 34.5 (31.7-36.0) g/dL RDW 13.3 (11.2-14.1) % Plt Count 193 (150-350) K/uL Neut % (Auto) 65.9 (45.0-80.0) % Lymph % (Auto) 23.8 (10.0-50.0) % [place] % (Auto) 6.9 (2.0-14.0) % Eos % (Auto) 3.1 (0.0-5.0) % Baso % (Auto) 0.3 (0.0-2.0) % Neut # (Auto) 6.00 (1.40-7.00) K/uL Lymph # (Auto) 2.17 (0.50-3.50) K/uL [place] # (Auto) 0.63 (0.00-1.00) K/uL Eos # (Auto) 0.28 (0.00-0.50) K/uL Baso # (Auto) 0.03 (0.00-0.20) K/uL Sodium 139 (136-145) mmol/L Potassium 4.0 (3.5-5.1) mmol/L Chloride 104 (98-107) mmol/L Carbon Dioxide 26.4 (21.0-32.0) mmol/L BUN 12 (7-18) mg/dL Creatinine 0.95 (0.51-1.17) mg/dL Est Cr Clr Drug Dosing 108.11 mL/min Estimated GFR (MDRD) > 60 mL/min Glucose 89 (74-106) mg/dL Calcium 8.8 (8.5-10.1) mg/dL Total Bilirubin 0.5 (0.2-1.0) mg/dL AST 51 H (15-37) U/L ALT 76 (12-78) U/L Alkaline Phosphatase 77 (46-116) IU/L C-Reactive Protein 0.5 (<=0.9) mg/dL Total Protein 7.2 (6.4-8.2) g/dL Albumin 3.2 L (3.4-5.0) g/dL JOSIAS Results - Last 24 hrs: Microbiology 10/02/17 13:45 Aerobic Blood Culture - Preliminary Blood - Venous - Lab Draw NO GROWTH AFTER 3 DAYS Anaerobic Blood Culture - Preliminary NO GROWTH AFTER 3 DAYS 10/02/17 13:35 Aerobic Blood Culture - Preliminary Blood - Venous NO GROWTH AFTER 3 DAYS Anaerobic Blood Culture - Preliminary NO GROWTH AFTER 3 DAYS Med Orders - Current: Current Medications Acetaminophen (Tylenol) 650 mg PO Q4H PRN PRN Reason: Pain (Mild 1-3)/fever Aspirin (Aspirin) 81 mg PO DAILY [facility] Last Admin: 10/06/17 08:02 Dose: 81 mg Diphenhydramine HCl (Benadryl) 25 mg PO BEDTIME [facility] Last Admin: 10/05/17 20:39 Dose: 25 mg Furosemide (Lasix) 20 mg PO DAILY [facility] Last Admin: 10/06/17 08:02 Dose: 20 mg Hydrochlorothiazide (Hydrochlorothiazide) 12.5 mg PO DAILY [facility] Last Admin: 10/06/17 08:01 Dose: 12.5 mg Ceftriaxone Sodium 2 gm/ (Sodium Chloride) 100 mls @ 200 mls/hr IV Q24H [facility] Last Admin: 10/06/17 08:02 Dose: 200 mls/hr Levofloxacin/Dextrose 500 mg/ (Premix) 100 mls @ 100 mls/hr IV Q24H [facility] Last Admin: 10/06/17 08:41 Dose: 100 mls/hr Lisinopril (Prinivil) 5 mg PO BEDTIME [facility] Last Admin: 10/05/17 20:39 Dose: 5 mg Lisinopril (Prinivil) 10 mg PO DAILY [facility] Last Admin: 10/06/17 08:01 Dose: 10 mg Metoprolol Succinate (Toprol Xl) 200 mg PO BEDTIME [facility] Last Admin: 10/05/17 20:38 Dose: 200 mg Multivitamins/Minerals/Vitamin C (Tab-A-Lars) 1 tab PO DAILY [facility] Last Admin: 10/06/17 08:02 Dose: 1 tab Sodium Chloride (Saline Flush) 10 ml FLUSH ASDIRECTED PRN PRN Reason: Keep Vein Open Last Admin: 10/06/17 08:42 Dose: 10 ml Discontinued Medications Ceftazidime (Fortaz) 1 gm IVPUSH Q8H [facility] Stop: 10/05/17 20:01 Last Admin: 10/05/17 20:40 Dose: 1 gm Diphtheria/Tetanus/Acell Pertussis (Adacel) 0.5 ml IM .ONCE ONE Stop: 10/04/17 20:01 Last Admin: 10/04/17 20:12 Dose: 0.5 ml Enoxaparin Sodium (Lovenox) 40 mg SUBCUT Q24H [facility] Last Admin: 10/04/17 13:38 Dose: 40 mg Clindamycin Phosphate 600 mg/ (Sodium Chloride) 104 mls @ 200 mls/hr IV Q6H [facility] Last Admin: 10/03/17 07:23 Dose: 200 mls/hr Vancomycin HCl 1 gm/ Sodium (Chloride) 250 mls @ 165 mls/hr IV Q12H [facility] Last Admin: 10/02/17 17:27 Dose: Not Given Vancomycin HCl 2 gm/ Sodium (Chloride) 500 mls @ 165 mls/hr IV Q12H [facility] Last Admin: 10/03/17 03:06 Dose: 165 mls/hr Clindamycin Phosphate 600 mg/ (Sodium Chloride) 104 mls @ 200 mls/hr IV Q6H [facility] Last Admin: 10/05/17 07:31 Dose: 200 mls/hr Vancomycin HCl 2 gm/ Sodium (Chloride) 500 mls @ 165 mls/hr IV Q12H [facility] Stop: 10/05/17 23:02 Last Admin: 10/05/17 20:38 Dose: 165 mls/hr Ciprofloxacin/Dextrose 400 mg/ (Premix) 200 mls @ 200 mls/hr IV Q12HR [facility] Levofloxacin/Dextrose 500 mg/ (Premix) 100 mls @ 100 mls/hr IV Q24H [facility] Last Admin: 10/05/17 12:07 Dose: 100 mls/hr Iopamidol (Isovue-300 (61%)) 100 ml IVPUSH ONETIME ONE Stop: 10/02/17 13:35 Last Admin: 10/04/17 11:09 Dose: Not Given Metoprolol Succinate (Toprol Xl) 200 mg PO DAILY [facility] Last Admin: 10/03/17 07:28 Dose: Not Given
== END 2017-10-06 13:35 | disposition home or self-care (01) | DRG 361 ==
LOC: LL.MS 12:05 → UNDOADMIN 12:05 → LL.MS 13:15
PROVIDERS: ADMIT Nurse Practitioner Family; ATTEND Family Medicine
PROC: 02HV33Z Insertion of Infusion Device into Superior Vena Cava, Percutaneous Approach (ICD-10-PCS; 2017-10-03)
PROC: 0JDR0ZZ Extraction of Left Foot Subcutaneous Tissue and Fascia, Open Approach (ICD-10-PCS; principal; 2017-10-05)
PROC: 0YBN0ZZ Excision of Left Foot, Open Approach (ICD-10-PCS; 2017-10-05)
DX: L03.116 Cellulitis of left lower limb (principal); L97.523 Non-pressure chronic ulcer of other part of left foot with necrosis of muscle; E66.9 Obesity, unspecified; G62.9 Polyneuropathy, unspecified; I10 Essential (primary) hypertension; L84 Corns and callosities; Z68.41 Body mass index [BMI] 40.0-44.9, adult; Z79.899 Other long term (current) drug therapy; Z79.82 Long term (current) use of aspirin
CPT/HCPCS: 36415; 36569; 73620-LT; 73701-LT; 80053; 80202; 85025; 86140; 87040; 90471; 90715; A9270-GY; J0696; J0713; J1650; J1956; J3370; J7040; J7050; Q9967; S0077

== ENCOUNTER 2021-12-20 11:52 | Inpatient (IN) | payer BC ==
[2021-12-20] MEDS: Piperacillin/Tazobactam 3.375 GM in Sodium Chloride 0.9% 100 ML IV SCH ×2 (12:43→18:52)
[2021-12-20] MEDS ORDERED: NAPROXEN SODIUM 220 MG PO PRN (13:00)
[2021-12-20] MEDS ORDERED: Naproxen 250 MG Tab PO PRN (14:16)
[2021-12-20] MEDS ORDERED: VANCOmycin 2 GM/400 ML 2 GM in Premix Bag 1 BAG IV ONE (16:00)
[2021-12-20] MEDS: Lisinopril 5 MG Tab PO SCH (19:44)
[2021-12-20] MEDS: diphenhydrAMINE 25 MG Cap PO SCH (19:44)
[2021-12-20] MEDS: Metoprolol Succinate 50 MG Tab.ER PO SCH (19:44)
[2021-12-20] MEDS: Sodium Chloride 0.9% 10 ML Syringe FLUSH PRN (19:45)
[2021-12-20] MEDS ORDERED: Non-Formulary Medication 1 Each (Metoprolol Succinate [Metoprolol Succinate] 100 MG Tab.Er PO SCH (20:00)
[2021-12-21] MEDS: Piperacillin/Tazobactam 3.375 GM in Sodium Chloride 0.9% 100 ML IV SCH ×4 (00:47→21:01)
[2021-12-21] MEDS: Sodium Chloride 0.9% 10 ML Syringe FLUSH PRN ×4 (00:47→21:01)
[2021-12-21] MEDS: Aspirin 81 MG Tab.Chew PO SCH (07:54)
[2021-12-21] MEDS: Hydrochlorothiazide 25 MG Tab PO SCH (07:54)
[2021-12-21] MEDS: Furosemide 20 MG Tab PO SCH (07:54)
[2021-12-21] MEDS: Lisinopril 10 MG Tab PO SCH (07:54)
[2021-12-21] MEDS: Multivitamin Tab PO SCH (07:54)
[2021-12-21] MEDS ORDERED: MULTIVITAMIN PO SCH (08:00)
[2021-12-21] MEDS ORDERED: [UNRECOGNIZED DRUG - OTHER] PO SCH (08:00)
[2021-12-21 08:26] LABS: ANION GAP 8.5 meq/L (7-15)
[2021-12-21] MEDS: Enoxaparin 40 MG/0.4 ML Syringe SUBCUT SCH (09:39)
[2021-12-21] MEDS: VANCOmycin 1.5 GM/300 ML 1.5 GM in Premix Bag 1 BAG IV SCH (17:33)
[2021-12-21] MEDS: Lisinopril 5 MG Tab PO SCH (21:05)
[2021-12-21] MEDS: Metoprolol Succinate 50 MG Tab.ER PO SCH (21:06)
[2021-12-21] MEDS: diphenhydrAMINE 25 MG Cap PO SCH (21:06)
[2021-12-21] MEDS: Phenylephrine 0.5% Nasal Spray 15 ML Bot NASBOTH PRN (21:37)
[2021-12-22] MEDS: Sodium Chloride 0.9% 10 ML Syringe FLUSH PRN ×2 (03:24→04:05)
[2021-12-22] MEDS: Piperacillin/Tazobactam 3.375 GM in Sodium Chloride 0.9% 100 ML IV SCH ×4 (03:24→20:34)
[2021-12-22] MEDS: VANCOmycin 1.5 GM/300 ML 1.5 GM in Premix Bag 1 BAG IV SCH ×2 (04:05→16:42)
[2021-12-22] MEDS: Multivitamin Tab PO SCH (07:33)
[2021-12-22] MEDS: Furosemide 20 MG Tab PO SCH (07:33)
[2021-12-22] MEDS: Aspirin 81 MG Tab.Chew PO SCH (07:33)
[2021-12-22] MEDS: Hydrochlorothiazide 25 MG Tab PO SCH (07:33)
[2021-12-22] MEDS: Enoxaparin 40 MG/0.4 ML Syringe SUBCUT SCH (07:34)
[2021-12-22] MEDS: Lisinopril 10 MG Tab PO SCH (07:34)
[2021-12-22 09:02] LABS: ANION GAP 12.4 meq/L (7-15)
[2021-12-22] MEDS: Silver Sulfadiazine 1% Crm 400 GM Jar TOP SCH ×2 (18:11→18:27)
[2021-12-22] MEDS: diphenhydrAMINE 25 MG Cap PO SCH (20:34)
[2021-12-22] MEDS: Metoprolol Succinate 50 MG Tab.ER PO SCH (20:34)
[2021-12-22] MEDS: Lisinopril 5 MG Tab PO SCH (20:36)
[2021-12-22] MEDS: Phenylephrine 0.5% Nasal Spray 15 ML Bot NASBOTH PRN (21:30)
[2021-12-23] MEDS: Piperacillin/Tazobactam 3.375 GM in Sodium Chloride 0.9% 100 ML IV SCH ×2 (03:08→08:11)
[2021-12-23] MEDS: VANCOmycin 1.5 GM/300 ML 1.5 GM in Premix Bag 1 BAG IV SCH (03:42)
[2021-12-23] MEDS: Silver Sulfadiazine 1% Crm 400 GM Jar TOP SCH (08:15)
[2021-12-23] MEDS: Furosemide 20 MG Tab PO SCH (08:16)
[2021-12-23] MEDS: Aspirin 81 MG Tab.Chew PO SCH (08:16)
[2021-12-23] MEDS: Hydrochlorothiazide 25 MG Tab PO SCH (08:16)
[2021-12-23] MEDS: Enoxaparin 40 MG/0.4 ML Syringe SUBCUT SCH (08:16)
[2021-12-23] MEDS: Multivitamin Tab PO SCH (08:17)
[2021-12-23] MEDS: Lisinopril 10 MG Tab PO SCH (08:17)
== END 2021-12-23 10:25 | disposition home or self-care (01) | DRG 383 ==
LOC: LL.ED 11:52 → LL.MS 12:40
PROVIDERS: ADMIT Physician Assistant; ATTEND Physician Assistant
PROC: 3E10X8Z Irrigation of Skin and Mucous Membranes using Irrigating Substance (ICD-10-PCS; principal; 2021-12-22)
DX: L03.116 Cellulitis of left lower limb (principal); L02.612 Cutaneous abscess of left foot; E78.00 Pure hypercholesterolemia, unspecified; I10 Essential (primary) hypertension; L89.899 Pressure ulcer of other site, unspecified stage; E66.01 Morbid (severe) obesity due to excess calories; Z68.41 Body mass index [BMI] 40.0-44.9, adult; Z79.82 Long term (current) use of aspirin; Z79.899 Other long term (current) drug therapy
CPT/HCPCS: 36415; 80048; 80053; 80202; 83605; 85025; 85027; 86140; 87040; 87070; 87205; 99223; 99233; 99239; 99284; A9270-GY; J1650; J2543; J3370; J3490; J7050

== ENCOUNTER 2022-02-05 08:15 | Inpatient (IN) | payer BC ==
[2022-02-23 13:00] LABS: ANION GAP 10.7 meq/L (7-15); CHLORIDE,CL 103 mmol/L (98-107); ESTIMATED GFR 76 mL/min (>=60); SODIUM,NA 137 mmol/L (136-145)
[2022-02-23 13:03] LABS: HEMOGLOBIN A1C 4.9 % (4.3-5.7)
[2022-02-25 09:19] LABS: CHLORIDE,CL 101 mmol/L (98-107); ESTIMATED GFR 77 mL/min (>=60); SODIUM,NA 138 mmol/L (136-145)
== END 2022-02-07 21:30 | disposition home or self-care (01) | DRG 383 ==
LOC: LL.ED 08:15 → LL.ZCENSUS 10:45
PROVIDERS: ADMIT Hospitalist; ATTEND Hospitalist
DX: L03.116 Cellulitis of left lower limb (principal); I10 Essential (primary) hypertension
CPT/HCPCS: 36415; 80053; 80202; 83036; 83605; 85027; 86140; 87040; 99283

== ENCOUNTER 2024-04-11 09:55 | Day surgery (SDC) | payer BC, MEDICARE ==
[~2024-04-11 09:55] MED LIST: Propofol 200 MG/20 ML SDV ONE; Sodium Chloride 0.9% 10 ML Syringe FLUSH PRN
[2024-04-11] MEDS: Lactated Ringers 1,000 ML IV SCH (09:55)
== END 2024-04-11 11:50 | disposition home or self-care (01) ==
LOC: LL.SDS 09:55
PROVIDERS: ATTEND Surgery
DX: Z12.11 Encounter for screening for malignant neoplasm of colon (principal); D12.3 Benign neoplasm of transverse colon; D12.5 Benign neoplasm of sigmoid colon; K57.30 Diverticulosis of large intestine without perforation or abscess without bleeding; I10 Essential (primary) hypertension; E66.813 Obesity, class 3; Z68.41 Body mass index [BMI] 40.0-44.9, adult; E78.00 Pure hypercholesterolemia, unspecified; Z80.0 Family history of malignant neoplasm of digestive organs; Z79.899 Other long term (current) drug therapy
CPT/HCPCS: J2704; J7120